=== PATIENT | male | born 1995 | race African-American/Black ===

== ENCOUNTER 2016-04-25 21:00 | Emergency (ER) | payer OTHER ==
[~2016-04-25] VITALS: Ht 180.3 cm; Wt 79.4 kg
--- NOTE | ~2016-04-25 | EKG ---
[address] [address] [place] [address] ELECTROCARDIOGRAM REPORT Name: TERI ARGUETA [id number] Admission: 04/25/16 Attend Phys: Discharge: 04/25/16 Date of : [birth year] Report #: [id number] THIS REPORT FOR: //name// [facility] ED Test Date: 2016-04-25 Test Time: 22:27:30 Pat Name: TERI ARGUETA Department: Room: Gender: M [employer]: [id number] : 1995 Requested By: Mazin Lara Order Number: [id number] MD: Robe Huang Measurements Intervals [place] Rate: 87 P: 0 SD: 115 QRS: 57 QRSD: 87 T: 46 QT: 352 QTc: 424 Interpretive Statements Sinus rhythm Borderline short SD interval Probable left atrial enlargement RSR' in V1 or V2, right VCD or RVH No previous ECG available for comparison Electronically Signed On 04-26-2016 8:20:00 TELEPHONIC NURSE by Robe Huang [email or web address] <ELECTRONICALLY SIGNED> By: Robe Huang MD, [facility] 04/26/16 0820 2226 26 Robe Huang MD, FACC /EPI
[~2016-04-25 21:00] MED LIST: BACTRIM DS TAB1 EACH PO; NOHOMEMEDICATIONS
[2016-04-25 22:21] LABS: HEMATOCRIT 47.2 % (42.0-52.0); HEMOGLOBIN 15.9 gm/dL (14.0-18.0); MANUAL DIFF YES; MCH 29.2 pg (26.0-34.0); MCHC 33.7 % (28.0-37.0); MCV 86.7 fL (80.0-100.0); PLATELET COUNT 333 thou/uL (150-400); RBC 5.44 mil/uL (4.50-6.00); RDW 12.7 % (10.5-14.5); WBC 13.8 thou/uL (4.0-11.0)
[2016-04-25 22:23] LABS: ANION GAP 8 mmol/L (7-16); BUN 25 mg/dL (7-18); CALCIUM 9.3 mg/dL (8.5-10.1); CHLORIDE 100 mmol/L (98-107); CO2 29 mmol/L (21-32); CREATININE 1.7 mg/dL (0.6-1.3); GLUCOSE 86 mg/dL (70-99); POTASSIUM 4.3 mmol/L (3.5-5.1); SODIUM 137 mmol/L (136-145)
[2016-04-25 22:46] LABS: URINE BILIRUBIN NEGATIVE (Negative); URINE BLOOD NEGATIVE (Negative); URINE COLOR YELLOW; URINE GLUCOSE-RANDOM* NEGATIVE (Negative); URINE KETONES NEGATIVE (Negative); URINE NITRITE NEGATIVE (Negative); URINE PROTEIN (DIPSTICK) NEGATIVE (Negative); URINE SPECIFIC GRAVITY >= 1.030 (1.003-1.035); URINE UROBILINOGEN 0.2 E.U./dl (0.2-1.0)
[2016-04-25 22:50] LABS: ALKALINE PHOSPHATASE 59 U/L (46-116); MAGNESIUM 1.9 mg/dL (1.8-2.4); SGOT 26 U/L (15-37); TOTAL BILIRUBIN 0.4 mg/dL (<0.1-1.0)
[2016-04-25 22:51] LABS: ALBUMIN 4.2 g/dL (3.4-5.0); SGPT 25 U/L (30-65); TOTAL PROTEIN 8.2 g/dL (6.4-8.2); TROPONIN-I < 0.04 ng/mL (<0.04-0.07)
[2016-04-25 23:19] LABS: ABSOLUTE NEUTROPHILS 11.6 thou/uL (1.4-8.2); TOTAL CELL COUNT 100
[2016-04-25] MEDS ORDERED: TRAMADOL 50 MG50 MG PO (23:35)
[2016-04-25 23:52] VITALS: BP 122/62
== END 2016-04-25 23:53 | disposition home or self-care (01) ==
LOC: EDBD 21:00 → ER 21:00
PROVIDERS: Emergency Medicine
DX: S00.83XA Contusion of other part of head, initial encounter (principal); S02.5XXA Fracture of tooth (traumatic), initial encounter for closed fracture; R55 Syncope and collapse; K59.00 Constipation, unspecified; F17.210 Nicotine dependence, cigarettes, uncomplicated; F10.99 Alcohol use, unspecified with unspecified alcohol-induced disorder; F12.10 Cannabis abuse, uncomplicated; X58.XXXA Exposure to other specified factors, initial encounter; Y93.9 Activity, unspecified; Y92.511 Restaurant or cafe as the place of occurrence of the external cause; Y99.9 Unspecified external cause status